=== PATIENT | male | born 1985 | race African-American/Black ===

== ENCOUNTER 2018-03-21 09:44 | Emergency (ER) | payer MEDICAID ==
[2018-03-21 09:52] VITALS: BP 150/93
--- NOTE | 2018-03-21 10:07 | ED Physician Documentation ---
History of Present Illness - Stated complaint Stated Complaint: DETOX SCREENING - Chief complaint Chief Complaint: General - History obtained from History obtained from: Patient - Additonal information Additional information: The patient is a 32-year-old male with a history of methamphetamine and marijuana abuse, who presents for medical clearance for detox. He last used methamphetamine today. He denies any underlying medical condition or prescription medication usage. He denies any recent fever, cough, abdominal pain, or dysuria. Review of Systems Constitutional: denies: Fever Eyes: denies: Irritation Nose: reports: Congestion Throat: denies: Sore throat Cardiac: denies: Chest pain / pressure Respiratory: denies: Dyspnea, Cough GI: denies: Abdominal Pain, Nausea, Vomiting : denies: Dysuria Skin: denies: Rash Musculoskeletal: denies: Back pain Neurologic: denies: Headache PD PAST MEDICAL HISTORY - Past Medical History Cardiovascular: None Respiratory: None Neuro: None Endocrine/Autoimmune: None GI: None - Past Surgical History Past Surgical History: No - Allergies Allergies/Adverse Reactions: Allergies Allergy/AdvReac Type Severity Reaction Status Date / Time No Known Drug Allergies Allergy Verified 03/21/18 09:52 - Social History Does the pt smoke?: No Smoking Status: Never smoker Does the pt drink ETOH?: No Does the pt have substance abuse?: Yes Substance Use and Type: Marijuana, Meth - Immunizations Immunizations: TDAP current <10years PD ED PE NORMAL - Vitals Vital signs reviewed: Yes (initially hypertensive.) - General General: Alert and oriented X 3, Well developed/nourished - HEENT HEENT: Atraumatic, EOMI, Moist mucous membranes, Pharynx benign - Neck Neck: Supple, no meningeal sign, No adenopathy, No JVD - Cardiac Cardiac: RRR, No murmur - Respiratory Respiratory: No respiratory distress, Clear bilaterally - Abdomen Abdomen: Soft, Non tender - Back Back: No CVA TTP - Derm Derm: No rash - Extremities Extremities: No tenderness to palpate, No edema, No calf tenderness / cord, Other (Needle tracks are noted on the upper extremities, without any evidence of abscess or cellulitis.) - Neuro Neuro: Alert and oriented X 3, No motor deficit, No sensory deficit, Normal speech - Psych Psych: Normal mood Results - Vitals Vitals: Oxygen O2 Source Room air PD MEDICAL DECISION MAKING - ED course Complexity details: considered differential, d/w patient ED course: The patient presented for medical clearance for detox. Based on his history and physical examination there is no clinical indication for laboratory or imaging studies. The patient is medically cleared and discharged for voluntary treatment at detox facility. - Sepsis Event Vital Signs: Oxygen O2 Source Room air Departure - Departure Disposition: Home, Self Care Clinical Impression: Encounter for medical screening examination, History of substance abuse Condition: Stable Instructions: ED Screening Exam Medical Nonurgent Comments: Your medical screening exam today reveals no urgent or emergent conditions requiring treatment at this time. You are medically clear for treatment at detox facility. Return to the emergency department if you develop concerning symptoms that warrant further evaluation. Discharge Date/Time: 03/21/18 10:11
== END 2018-03-21 10:11 | disposition home or self-care (01) ==
LOC: ED 09:44
DX: Z02.89 Encounter for other administrative examinations (principal); F15.10 Other stimulant abuse, uncomplicated; F12.10 Cannabis abuse, uncomplicated
CPT/HCPCS: 99282; 99283

== ENCOUNTER 2020-11-22 07:00 | Outpatient (CLI) | payer MEDICAID ==
[2020-11-22 19:18] LABS: CHLAMYDIA TRACHOMATIS DNA POSITIVE (NEGATIVE); NEISSERIA GONORRHOEAE DNA NEGATIVE (NEGATIVE)
== END 2020-11-22 23:59 | disposition home or self-care (01) ==
LOC: LAB.R 07:00
PROVIDERS: ATTEND Registered Nurse
DX: Z11.3 Encounter for screening for infections with a predominantly sexual mode of transmission (principal)
CPT/HCPCS: 81001; 81003; 87086; 87491; 87591; 87661

== ENCOUNTER 2021-01-11 16:23 | Outpatient (CLI) | payer MEDICAID | END 2021-01-11 16:24 | disposition critical access hospital (66) | LOC: EMS 16:23 | DX: R44.8 Other symptoms and signs involving general sensations and perceptions (principal) | CPT/HCPCS: A0425; A0429; A0999 ==

== ENCOUNTER 2021-01-11 16:49 | Emergency (ER) | payer MEDICAID ==
[2021-01-11 17:09] VITALS: BP 163/103
--- NOTE | 2021-01-11 17:22 | ED Physician Documentation ---
History of Present Illness - Stated complaint Stated Complaint: HEADACHE - Chief complaint Chief Complaint: MHE - History obtained from History obtained from: Patient - Additonal information Additional information: 35-year-old gentleman presents by ambulance requesting to know a DNA test to figure out who his parents are. He thinks that his parents are not his real parents. He notes that when he types his name into [employer] he receives mostly [place] results leading him to believe that he was probably born in [place], but was raised by different parents than his own. He also notes that he was recently incarcerated and on getting out of prison his car was stolen. He thinks that some sort of conspiracy. Review of Systems Ten Systems: 10 systems reviewed and negative Constitutional: reports: Reviewed and negative Throat: reports: Reviewed and negative Cardiac: reports: Reviewed and negative PD PAST MEDICAL HISTORY - Past Medical History Cardiovascular: None Respiratory: None Neuro: None Endocrine/Autoimmune: None GI: None - Past Surgical History Past Surgical History: No - Present Medications Home Medications: Ambulatory Orders Medication Instructions Recorded Confirmed No Known Home Medications 01/11/21 01/11/21 - Allergies Allergies/Adverse Reactions: Allergies Allergy/AdvReac Type Severity Reaction Status Date / Time No Known Drug Allergies Allergy Verified 01/11/21 17:09 - Social History Does the pt smoke?: No Smoking Status: Never smoker Does the pt drink ETOH?: No Does the pt have substance abuse?: Yes - Immunizations Immunizations: TDAP current <10years PD ED PE NORMAL - Vitals Vital signs reviewed: Yes - General General: Alert and oriented X 3, Other (Slightly pressured speech and clearly delusional) - HEENT HEENT: PERRL, EOMI - Neck Neck: Supple, no meningeal sign, No bony TTP - Cardiac Cardiac: RRR, No murmur - Respiratory Respiratory: No respiratory distress, Clear bilaterally - Abdomen Abdomen: Normal bowel sounds, Soft, Non tender - Back Back: No CVA TTP, No spinal TTP - Derm Derm: Normal color, Warm and dry - Extremities Extremities: No edema, No calf tenderness / cord - Neuro Neuro: Alert and oriented X 3, Normal speech Eye Opening: Spontaneous Motor: Obeys Commands Verbal: Oriented GCS Score: 15 Results - Vitals Vitals: Vital Signs - 24 hr 01/11/21 17:00 Temperature 37.4 C Heart Rate 110 H Respiratory 16 Rate Blood Pressure 163/103 H O2 Saturation 98 Oxygen O2 Source Room air - Labs Labs: Laboratory Tests 01/11/21 01/11/21 01/11/21 17:58 17:58 17:58 WBC 4.9 RBC 4.55 L Hgb 13.9 L Hct 41.3 L MCV 90.8 MCH 30.5 MCHC 33.7 RDW 14.0 Plt Count 313 MPV 9.6 Neut # (Auto) 3.3 Lymph # (Auto) 0.9 L Dewey # (Auto) 0.6 Eos # (Auto) 0.1 Baso # (Auto) 0.1 Absolute Nucleated RBC 0.00 Nucleated RBC % 0.0 Sodium 142 Potassium 4.1 Chloride 102 Carbon Dioxide 29 Anion Gap 11.0 BUN 21 H Creatinine 1.3 H Estimated GFR (MDRD) 76 L Glucose 118 H Calcium 9.8 Total Bilirubin 1.5 H AST 33 ALT 33 Alkaline Phosphatase 48 Total Protein 7.7 Albumin 4.7 Globulin 3.0 Albumin/Globulin Ratio 1.6 Lipase 22 TSH 1.00 Salicylates < 6.0 Acetaminophen < 10 L Ethyl Alcohol < 5.0 Blood Type 01/11/21 17:58 WBC RBC Hgb Hct MCV MCH MCHC RDW Plt Count MPV Neut # (Auto) Lymph # (Auto) Dewey # (Auto) Eos # (Auto) Baso # (Auto) Absolute Nucleated RBC Nucleated RBC % Sodium Potassium Chloride Carbon Dioxide Anion Gap BUN Creatinine Estimated GFR (MDRD) Glucose Calcium Total Bilirubin AST ALT Alkaline Phosphatase Total Protein Albumin Globulin Albumin/Globulin Ratio Lipase TSH Salicylates Acetaminophen Ethyl Alcohol Blood Type O NEGATIVE PD MEDICAL DECISION MAKING - ED course ED course: Discussed with him that I do not really have a way to compare his DNA with his parents. Offered to do his blood type which she agreed with. He declined to talk with a psychiatrist. However after a while he did not want to wait for the blood results. Departure - Departure Disposition: 01 Home, Self Care Clinical Impression: Delusional disorder Condition: Good Record reviewed to determine appropriate education?: Yes Comments: Return if you worsen or decide you would like psychiatric care. Follow Up with your primary care physician. Discharge Date/Time: 01/11/21 18:32
[2021-01-11 18:06] LABS: BASOPHILS # (AUTO) 0.1 10^3/uL (0.0-0.1); EOSINOPHILS # (AUTO) 0.1 10^3/uL (0.0-0.7); EOSINOPHILS % (AUTO) 1.4 %; HCT - HEMATOCRIT 41.3 % (42.0-52.0); HGB - HEMOGLOBIN 13.9 g/dL (14.0-18.0); LYMPHOCYTES # (AUTO) 0.9 10^3/uL (1.5-3.5); LYMPHOCYTES % (AUTO) 17.7 %; MEAN CORPUSCULAR HEMOGLOBIN 30.5 pg (27.0-31.0); MEAN CORPUSCULAR HGB CONC 33.7 g/dL (32.0-36.0); MEAN CORPUSCULAR VOLUME 90.8 fL (80.0-94.0); MEAN PLATELET VOLUME 9.6 fL (7.4-11.4); MONOCYTES # (AUTO) 0.6 10^3/uL (0.0-1.0); MONOCYTES % (AUTO) 12.8 %; NEUTROPHILS # (AUTO) 3.3 10^3/uL (1.5-6.6); NEUTROPHILS % (AUTO) 66.9 %; PLT - PLATELET COUNT 313 10^3/uL (130-450); RED BLOOD COUNT 4.55 10^6/uL (4.70-6.10); WHITE BLOOD COUNT 4.9 x10^3/uL (4.8-10.8)
[2021-01-11 18:23] LABS: ACETAMINOPHEN < 10 ug/mL (10-30); ALBUMIN 4.7 g/dL (3.2-5.5); ALBUMIN/GLOBULIN RATIO 1.6 (1.0-2.2); ALKALINE PHOSPHATASE 48 IU/L (42-121); ALT ALANINE AMINOTRANSFERASE 33 IU/L (10-60); AST ASPARTATE AMINOTRANSFERASE 33 IU/L (10-42); BILIRUBIN,TOTAL 1.5 mg/dL (0.2-1.0); BUN - BLOOD UREA NITROGEN 21 mg/dL (6-20); CALCIUM 9.8 mg/dL (8.5-10.3); CARBON DIOXIDE - CO2 29 mmol/L (21-32); CHLORIDE 102 mmol/L (101-111); CREATININE 1.3 mg/dL (0.6-1.2); ETOH - ETHANOL < 5.0 mg/dL; GFR - MDRD 76 (>89); GLUCOSE 118 mg/dL (70-100); LIPASE 22 U/L (22-51); POTASSIUM 4.1 mmol/L (3.5-5.0); SALICYLATE < 6.0 mg/dL; SODIUM 142 mmol/L (135-145); TOTAL PROTEIN 7.7 g/dL (6.7-8.2)
== END 2021-01-11 18:32 | disposition home or self-care (01) ==
LOC: EDUNIT# → ED 16:49
DX: F22 Delusional disorders (principal)
CPT/HCPCS: 36415; 80053; 80307; 80320; 80329; 83690; 84443; 85025; 86900; 86901; 99283